=== PATIENT | female | born 1940 ===

== ENCOUNTER 2018-12-27 07:28 | Day surgery (SDC) | payer OTHER, MEDICARE ==
[2018-12-27 07:17] VITALS: BMI 29.6
[2018-12-27] MEDS ORDERED: Lidocaine PF 2% (5 ml) Inj (For Cardiac Arrhy) ONE (07:55)
[2018-12-27] MEDS ORDERED: Verapamil 2 ML ONE (08:13)
[2018-12-27] MEDS ORDERED: Iohexol 350mgl/ml 50 ML ONE (08:13)
[2018-12-27] MEDS ORDERED: Iohexol 350 MG/100 ML VIAL ONE (08:13)
[2018-12-27] MEDS ORDERED: Adenosine 90 mg/30mL IV ONE (08:14)
[2018-12-27] MEDS ORDERED: Nitroglycerin 50mg in D5W 50 MG/250 ML BOTTLE IV ONE (08:14)
[2018-12-27] MEDS ORDERED: Midazolam 2 MG/2 ML VIAL ONE (08:49)
[2018-12-27] MEDS ORDERED: DiphenhydrAMINE 50 mg/ml Inj ONE (09:06)
[2018-12-27] MEDS ORDERED: Bacitracin 500 Units/gm Oint Foilpak UD TOP ONE (09:23)
--- NOTE | 2018-12-27 12:06 | CARDCATH ---
PROCEDURE DATE: 12/27/2018 INDICATIONS: Ms. Maguire is a pleasant 78-year-old female, who presented to [facility] with an episode of syncope. She had prior history of recurrent episodes every year. She underwent a nuclear stress test, which showed evidence of ischemia and multiple territories and therefore was brought to the label sewer for further evaluation and treatment. PROCEDURE PERFORMED: Left heart catheterization with selective left and right coronary angiogram, left ventriculogram, 6-Khmer left radial arterial access, wrist band for hemostasis. ANGIOGRAPHIC FINDINGS: Left main is a large-sized vessel, bifurcates into left anterior descending and left circumflex coronary artery. Left main is free of any obstructive disease. Left circumflex is a large-sized vessel, runs in the AV groove, gives off a medium size obtuse marginal branch 1 and then two small size obtuse marginal branch, 2 and 3. Left circumflexes free of any obstructive disease and codominant circulation. LAD has a mid segment 50% myocardial bridge. Diagonal is a medium size vessel free of any obstructive disease. RCA is a large size vessel, gives off right PDA branches free of any obstructive disease. Left ventricular ejection fraction 55% to 60%. EDP was 16. IMPRESSION: Nonobstructive coronary artery disease, mid left anterior descending myocardial bridge, and normal ejection fraction. RECOMMENDATIONS: Continue guideline-directed medical therapy for myocardial bridge. Keep the patient on beta-blockers and negative inotropes and chronotropes for decreasing strain on the LAD myocardial bridge. Thank you Dr. Kaminski for letting me participate in the care of your patient. Rigo Dolan MD cc: Ken Kaminski MD and Carol Carroll MD. [facility]ITAL[facility]
[2018-12-27] MEDS ORDERED: Bacitracin 500 Units/gm Oint Foilpak UD ONE (12:30)
[2018-12-27 13:23] VITALS: TEMP 97.5
[2018-12-27 15:41] VITALS: RESP 18
[2018-12-27 15:42] VITALS: BP 121/67; PULSE 61
== END 2018-12-27 16:11 | disposition short-term general hospital (02) ==
LOC: CATH 07:28 → 2RSO 09:49 → CATH 16:11
PROVIDERS: ATTEND Internal Medicine Interventional Cardiology
DX: I25.10 Atherosclerotic heart disease of native coronary artery without angina pectoris (principal); R55 Syncope and collapse
CPT/HCPCS: 93458; 99152; C1769; C1894; J1200; J1644 ×2; J2250; J3010; J7040; Q9967